=== PATIENT | male | born 1975 | race African-American/Black ===

== ENCOUNTER 2021-07-08 21:31 | Inpatient (IN) ==
[2021-07-08] MEDS ORDERED: ASPIRIN 325 MG TABLET PO STA (22:07)
[2021-07-08] MEDS ORDERED: TICAGRELOR 90 MG TABLET PO STA (22:07)
[2021-07-08] MEDS ORDERED: ONDANSETRON 4 MG/2 ML VIAL IV STA (22:07)
[2021-07-08] MEDS ORDERED: NITROGLYCERIN SL 0.4 MG TABLET SL PRN (22:07)
[2021-07-08] MEDS ORDERED: HEPARIN 1,000 UNIT/1 ML VIAL IV STA (22:10)
[2021-07-08] MEDS ORDERED: HEPARIN 5,000 UNIT/1 ML VIAL ONE (22:12)
[2021-07-08 22:21] LABS: Basophils # 0.1 10*3/uL (0.0-0.2); Basophils % 0.6 % (0.0-0.8); Eosinophils # 0.2 10*3/uL (0.0-0.87); Eosinophils % 1.7 % (0.00-10.9); Hematocrit 46.7 VOL% (42.0-52.0); Hemoglobin 15.2 GM/DL (14.0-18.0); Immature Granulocytes % 0.5 %; Immature Granulocytes Absolute 0.05 #; Lymphocytes # 3.7 10*3/uL (1.4-4.0); Mean Corpuscular HGB Conc 32.5 GM/DL (32-36); Mean Platelet Volume 10.7 FL (9.6-12.0); Neutrophils % 46.2 % (38.7-73.9); Platelet Count 182 T/CUMM (130-400); Red Blood Count 4.97 MC/CUMM (3.8-5.5); White Blood Count 9.3 T/CUMM (4-12)
[2021-07-08 22:33] LABS: PT Patient Result 11.1 SECS (10.5-12.0); Partial Thromboplastin Time 25.5 SECS (23.8-32.1)
[2021-07-08] MEDS ORDERED: HYDROmorphone 1 MG/1 ML SYRINGE ONE ×2 (22:39→23:14)
[2021-07-08] MEDS ORDERED: MIDAZOLAM 2 MG/2 ML VIAL ONE (22:39)
[2021-07-08] MEDS ORDERED: NITROGLYCERIN DRIP 50 MG/250 ML BOTTLE IV ONE (22:39)
[2021-07-08] MEDS ORDERED: VERAPAMIL 5 MG/2 ML VIAL ONE (22:39)
[2021-07-08 22:40] LABS: Albumin 4.2 G/DL (3.4-5.0); Bilirubin,Total 0.7 MG/DL (0.20-1.00); Calcium 9.3 MG/DL (8.5-10.1); Osmolality,Calculated 281.4 MOS/KG (273-304); Potassium 3.3 MMOL/L (3.5-5.1)
[2021-07-08] MEDS ORDERED: ENOXAPARIN 60 MG/0.6 ML SYRINGE ONE (22:50)
[2021-07-08] MEDS ORDERED: TIROFIBAN 5,000 MCG/100 ML PREMIX IV ONE ×2 (22:58→23:50)
[2021-07-08] MEDS ORDERED: TIROFIBAN 5,000 MCG/100 ML PREMIX IV SCH (23:06)
[2021-07-08] MEDS ORDERED: HEPARIN/NACL 0.9% 2 UNITS/ML 1,000 UNIT/500 ML BAG IV ONE (23:11)
[2021-07-08] MEDS ORDERED: ONDANSETRON 4 MG/2 ML VIAL ONE (23:31)
[2021-07-08] MEDS ORDERED: ATROPINE 1 MG/10 ML SYRINGE ONE (23:51)
[2021-07-08] MEDS ORDERED: DOPamine 800 MG/250 ML PREMIX IV ONE (23:52)
[2021-07-08] MEDS ORDERED: DOPamine 800 MG/250 ML PREMIX IV PRN (23:56)
[2021-07-09] MEDS ORDERED: ONDANSETRON 4 MG/2 ML VIAL ONE (00:08)
[2021-07-09] MEDS ORDERED: ONDANSETRON 4 MG/2 ML VIAL IV PRN (00:11)
[2021-07-09] MEDS ORDERED: MAGNESIUM SULF RIDER 4 GM/100 ML PREMIX IV PRN (00:11)
[2021-07-09] MEDS ORDERED: MAGNESIUM SULF RIDER 2 GM/50 ML PREMIX IV PRN (00:11)
[2021-07-09] MEDS ORDERED: ACETAMINOPHEN 325 MG TABLET PO PRN (00:11)
[2021-07-09 01:34] LABS: Basophils % 0.3 % (0.0-0.8); Eosinophils % 0.1 % (0.00-10.9); Hematocrit 46.5 VOL% (42.0-52.0); Hemoglobin 15.1 GM/DL (14.0-18.0); Immature Granulocytes % 0.5 %; Immature Granulocytes Absolute 0.05 #; Lymphocytes % 11.2 % (21.2-54.2); Mean Corpuscular HGB Conc 32.5 GM/DL (32-36); Mean Corpuscular Volume 95.3 FL (87-102); Mean Platelet Volume 10.6 FL (9.6-12.0); Monocytes # 0.4 10*3/uL (0.11-0.8); Monocytes % 4.7 % (1.7-12.7); Neutrophils % 83.2 % (38.7-73.9); Platelet Count 178 T/CUMM (130-400); Red Blood Count 4.88 MC/CUMM (3.8-5.5); White Blood Count 9.2 T/CUMM (4-12)
[2021-07-09 04:32] LABS: Risk Ratio 3.72; VLDL Cholesterol 21.6 MG/DL
[2021-07-09] MEDS: ASPIRIN EC 81 MG TABLET PO SCH (08:05)
[2021-07-09] MEDS: TICAGRELOR 90 MG TABLET PO SCH ×2 (08:06→20:06)
[2021-07-09 08:27] LABS: Albumin 3.9 G/DL (3.4-5.0); Bilirubin,Total 0.9 MG/DL (0.20-1.00); Calcium 8.5 MG/DL (8.5-10.1); Potassium 4.1 MMOL/L (3.5-5.1); Thyroid Stimulating Hormone 0.969 uIU/ml (0.358-3.74); Total Protein 8.2 G/DL (6.4-8.2)
[2021-07-09] MEDS ORDERED: CHLORTHALIDONE 25 MG TABLET PO SCH (10:30)
[2021-07-09 10:44] LABS: Barbiturates Screen,Urine Negative (Negative); Benzodiazepines Screen,Urine Positive (Negative); Cannabinoid Screen,Urine Negative (Negative); Opiate Screen,Urine Negative (Negative); Phencyclidine Screen,Urine Negative (Negative)
[2021-07-09] MEDS: METOPROLOL TARTRATE 25 MG TABLET PO SCH (20:05)
[2021-07-09] MEDS: ZALEPLON 5 MG CAPSULE PO PRN (20:06)
[2021-07-09] MEDS: ROSUVASTATIN 20 MG TABLET PO SCH (20:06)
[2021-07-09] MEDS: PANTOPRAZOLE 40 MG TABLET PO SCH (20:06)
[2021-07-10 04:14] LABS: Basophils % 0.2 % (0.0-0.8); Eosinophils % 0.3 % (0.00-10.9); Hematocrit 45.6 VOL% (42.0-52.0); Hemoglobin 15.2 GM/DL (14.0-18.0); Immature Granulocytes % 0.5 %; Immature Granulocytes Absolute 0.06 #; Lymphocytes # 1.2 10*3/uL (1.4-4.0); Lymphocytes % 10.5 % (21.2-54.2); Mean Corpuscular HGB Conc 33.3 GM/DL (32-36); Mean Corpuscular Volume 91.2 FL (87-102); Monocytes # 1.4 10*3/uL (0.11-0.8); Monocytes % 12.4 % (1.7-12.7); Neutrophils % 76.1 % (38.7-73.9); Platelet Count 184 T/CUMM (130-400); White Blood Count 11.7 T/CUMM (4-12)
[2021-07-10 04:44] LABS: Albumin 3.8 G/DL (3.4-5.0); Bilirubin,Total 1.3 MG/DL (0.20-1.00); Calcium 9.1 MG/DL (8.5-10.1); Potassium 3.3 MMOL/L (3.5-5.1); Total Protein 7.4 G/DL (6.4-8.2)
[2021-07-10] MEDS ORDERED: POTASSIUM CHLORIDE 20 MEQ TABLET PO ONE (07:13)
[2021-07-10] MEDS: TICAGRELOR 90 MG TABLET PO SCH ×2 (08:04→20:05)
[2021-07-10] MEDS: METOPROLOL TARTRATE 25 MG TABLET PO SCH ×2 (08:04→20:05)
[2021-07-10] MEDS: PANTOPRAZOLE 40 MG TABLET PO SCH (08:04)
[2021-07-10] MEDS: ASPIRIN EC 81 MG TABLET PO SCH (08:04)
[2021-07-10] MEDS: MAGNESIUM HYDROXIDE SUSP 30 ML UDCUP PO PRN ×2 (08:31→20:04)
[2021-07-10] MEDS: DOCUSATE SODIUM 100 MG CAPSULE PO SCH ×2 (08:32→20:05)
[2021-07-10] MEDS: LOSARTAN 25 MG TABLET PO SCH (12:54)
[2021-07-10 17:10] VITALS: BP 117/83
[2021-07-10] MEDS: ROSUVASTATIN 20 MG TABLET PO SCH (20:05)
[2021-07-10] MEDS: ZALEPLON 5 MG CAPSULE PO PRN (20:05)
[2021-07-11 03:39] LABS: Basophils % 0.4 % (0.0-0.8); Eosinophils # 0.1 10*3/uL (0.0-0.87); Eosinophils % 0.5 % (0.00-10.9); Hematocrit 46.6 VOL% (42.0-52.0); Hemoglobin 15.5 GM/DL (14.0-18.0); Immature Granulocytes % 0.5 %; Immature Granulocytes Absolute 0.06 #; Lymphocytes # 1.9 10*3/uL (1.4-4.0); Lymphocytes % 17.2 % (21.2-54.2); Mean Corpuscular HGB Conc 33.3 GM/DL (32-36); Mean Corpuscular Volume 92.1 FL (87-102); Mean Platelet Volume 10.8 FL (9.6-12.0); Monocytes # 1.7 10*3/uL (0.11-0.8); Monocytes % 15.2 % (1.7-12.7); Neutrophils % 66.2 % (38.7-73.9); Platelet Count 173 T/CUMM (130-400); Red Blood Count 5.06 MC/CUMM (3.8-5.5); Red Cell Distribution Width 13.1 % (9.3-17.3)
[2021-07-11 04:06] LABS: CKMB % 0.53 %
[2021-07-11 04:12] LABS: Albumin 3.4 G/DL (3.4-5.0); Bilirubin,Total 1.1 MG/DL (0.20-1.00); Calcium 9.3 MG/DL (8.5-10.1); Potassium 3.5 MMOL/L (3.5-5.1); Total Protein 7.7 G/DL (6.4-8.2)
[2021-07-11] MEDS: ASPIRIN EC 81 MG TABLET PO SCH (08:34)
[2021-07-11] MEDS: DOCUSATE SODIUM 100 MG CAPSULE PO SCH (08:35)
[2021-07-11] MEDS: METOPROLOL TARTRATE 25 MG TABLET PO SCH (08:35)
[2021-07-11] MEDS: LOSARTAN 25 MG TABLET PO SCH (08:35)
[2021-07-11] MEDS: PANTOPRAZOLE 40 MG TABLET PO SCH (08:35)
[2021-07-11] MEDS: TICAGRELOR 90 MG TABLET PO SCH (08:36)
[2021-07-11] MEDS ORDERED: SPIRONOLACTONE 25 MG TABLET PO SCH (09:00)
[2021-07-11 09:31] LABS: CKMB % 0.59 %; High Sensitive Troponin I* 36761.2 ng/L (0-78)
== END 2021-07-11 14:30 | disposition home or self-care (01) | DRG 246 ==
LOC: N.ED 21:31 → N.EDINP 22:56 → N.ICU 23:13
PROVIDERS: ADMIT Internal Medicine Cardiovascular Disease; ATTEND Internal Medicine Cardiovascular Disease
PROC: CLCCHCL (ICD-10-PCS; 2021-07-08 23:00)